=== PATIENT | female | born 1950 | race Caucasian/White ===

== ENCOUNTER → 2016-09-08 | Outpatient (CLI) | payer BC, OTHER ==
[~2016-09-08] MED LIST: CELE40TA PO; COLA100C3 PO; HYDR12.55 PO; LANTINJ4 SC; OMEP20CA3 PO; PERC5TAB6 PO; TYLE325T5 PO; ZOCO20TA PO
--- NOTE | 2016-09-08 09:56 | REP ---
Chest two views HISTORY: Renal carcinoma Comparison: 08/19/2015 The lungs are clear. The heart is normal in size. The pulmonary vasculature is normal in appearance. Degenerative change is present in the thoracic spine. IMPRESSION: No acute disease. Signed by Pardeep Willis MD 09/08/2016 09:47 A
[2016-09-08 13:01] LABS: MEAN CORPUSCULAR HEMOGLOBIN 30.6 pg (27.0-33.0); MEAN CORPUSCULAR HGB CONC 34.7 g/dl (32.0-36.5); MEAN CORPUSCULAR VOLUME 88.1 fl (80.0-96.0); RED CELL DISTRIBUTION WIDTH 13.3 % (11.5-14.5); WHITE BLOOD COUNT 6.3 K/mm3 (4.0-10.0)
[2016-09-08 13:35] LABS: ANION GAP 6 MEQ/L (8-16); BLOOD UREA NITROGEN 10 MG/DL (7-18); CARBON DIOXIDE LEVEL 31 MEQ/L (21-32); CHLORIDE LEVEL 102 MEQ/L (98-107); CREATININE FOR GFR 0.59 MG/DL (0.55-1.02); GLOMERULAR FILTRATION RATE > 60.0 (>45); GLUCOSE, FASTING 104 MG/DL (80-110); POTASSIUM SERUM 3.9 MEQ/L (3.5-5.1); SODIUM LEVEL 139 MEQ/L (136-145)
== END ==
LOC: M SMT 09:16
PROVIDERS: ATTEND Urology
DX: Z85.528 Personal history of other malignant neoplasm of kidney (principal)

== ENCOUNTER 2017-09-25 08:05 | Emergency (ER) | payer MEDICARE, BC, OTHER ==
[2017-09-25 09:44] LABS: BASO % 0.4 % (0.0-1.0); EOS # 0.1 10^3/uL (0.0-0.50); EOS % 0.6 % (0.0-3.0); HEMATOCRIT 40.6 % (36.0-47.0); IMMATURE GRANULOCYTE % 0.4 % (0-3.0); LYMPH # 1.4 10^3/uL (1.5-4.5); LYMPH % 16.1 % (24.0-44.0); MEAN CORPUSCULAR HEMOGLOBIN 28.5 pg (27.0-33.0); MEAN CORPUSCULAR HGB CONC 34.5 g/dl (32.0-36.5); MEAN CORPUSCULAR VOLUME 82.5 fl (80.0-96.0); MONO # 0.5 10^3/uL (0.0-0.8); MONO % 5.6 % (0.0-5.0); NEUTROPHILS # 6.5 10^3/uL (1.8-7.7); NEUTROPHILS % 76.9 % (36.0-66.0); PLATELET COUNT, AUTOMATED 278 10^3/uL (150-450); RED BLOOD COUNT 4.92 10^6/uL (4.00-5.40); RED CELL DISTRIBUTION WIDTH 12.3 % (11.5-14.5); WHITE BLOOD COUNT 8.4 10^3/uL (4.0-10.0)
[2017-09-25] MEDS: KETOROLAC 30 MG/ML VIAL (J1885) IV (09:51)
[2017-09-25] MEDS: GI COCKTAIL 50ML BTL(HYOSCYAMINE/MAALOX/LIDOCAINE VISCOUS)(1:3:1) PO (09:51)
[2017-09-25] MEDS: GASTROGRAFIN SOLUTION 30ML PO ×2 (09:52→10:15)
[2017-09-25 10:04] LABS: APPEARANCE, URINE CLEAR (CLEAR); BACTERIA, URINE AUTO NEGATIVE (NEGATIVE); BILIRUBIN, URINE AUTO NEGATIVE (NEGATIVE); BLOOD, URINE BLOOD NEGATIVE (NEGATIVE); COLOR, URINE YELLOW (YELLOW); GLUCOSE, URINE (UA) AUTO NEGATIVE (NEGATIVE); KETONE, URINE AUTO NEGATIVE (NEGATIVE); LEUKOCYTE ESTERASE, URINE AUTO NEGATIVE (NEGATIVE); NITRITE, URINE AUTO NEGATIVE (NEGATIVE); PROTEIN, URINE AUTO NEGATIVE (NEGATIVE); RBC, URINE AUTO 1 /HPF (0-3); SPECIFIC GRAVITY URINE AUTO 1.011 (1.002-1.035); SQUAMOUS EPITHELIAL CELL UR AU 0 /HPF (0-6); WBC, URINE AUTO 1 /HPF (0-3)
[2017-09-25 10:21] LABS: ALBUMIN 3.7 GM/DL (3.2-5.2); ALKALINE PHOSPHATASE 89 U/L (45-117); ALT/SGPT 38 U/L (12-78); AMYLASE 40 U/L (25-115); ANION GAP 9 MEQ/L (8-16); AST/SGOT 63 U/L (7-37); BILIRUBIN,DIRECT 0.3 MG/DL (0.0-0.2); BILIRUBIN,TOTAL 1.8 MG/DL (0.2-1.0); BLOOD UREA NITROGEN 11 MG/DL (7-18); CARBON DIOXIDE LEVEL 28 MEQ/L (21-32); CHLORIDE LEVEL 101 MEQ/L (98-107); CK-MB VALUE MASS < 1.0 NG/ML (<3.6); CPK CREATINE PHOSPHOKINASE 42 U/L (26-192); CREATININE FOR GFR 0.62 MG/DL (0.55-1.30); GLOMERULAR FILTRATION RATE > 60.0 (>45); GLUCOSE, FASTING 150 MG/DL (70-100); LIPASE 119 U/L (73-393); MB/CK RELATIVE INDEX 2.38 (< OR =4); POTASSIUM SERUM 4.1 MEQ/L (3.5-5.1); SODIUM LEVEL 138 MEQ/L (136-145); TOTAL PROTEIN 7.4 GM/DL (6.4-8.2); TROPONIN I < 0.02 NG/ML (< 0.10)
[2017-09-25] MEDS ORDERED: ISOVUE-370 76% 100ML VIAL (Q9967) As Ordered (11:03)
== END 2017-09-25 12:25 | disposition home or self-care (01) ==
LOC: M ED 08:05
DX: R10.13 Epigastric pain (principal); R00.1 Bradycardia, unspecified; K76.89 Other specified diseases of liver; K44.9 Diaphragmatic hernia without obstruction or gangrene; K21.9 Gastro-esophageal reflux disease without esophagitis; Z98.84 Bariatric surgery status; E10.9 Type 1 diabetes mellitus without complications; Z85.528 Personal history of other malignant neoplasm of kidney; I10 Essential (primary) hypertension; E78.00 Pure hypercholesterolemia, unspecified; Z79.899 Other long term (current) drug therapy
CPT/HCPCS: Q9963

== ENCOUNTER → 2017-11-12 | Outpatient (REF) | payer MEDICARE, BC | LOC: M LAB REF 17:08 | DX: N39.0 Urinary tract infection, site not specified (principal) | CPT/HCPCS: 87186 ==

== ENCOUNTER 2017-11-27 05:52 | Day surgery (SDC) | payer MEDICARE, BC ==
[2017-11-27] MEDS: LR 1,000 ML IV ×2 (06:33→09:07)
[2017-11-27 06:44] LABS: BEDSIDE GLUCOSE 88 MG/DL (80-115)
[2017-11-27] MEDS: ceFAZolin SOD 1 GM in D5W MINI-BAG PLUS 50 ML IV (07:47)
[2017-11-27] MEDS ORDERED: LIDOCAINE 2% INJ 100 MG/5 ML SDV (FOR ANES.) As Ordered (07:56)
[2017-11-27] MEDS ORDERED: fentaNYL 250 MCG/5 ML INJECTION (J3010) As Ordered (07:56)
[2017-11-27] MEDS ORDERED: ROCURONIUM BROMIDE 50 MG/5 ML VIAL As Ordered (07:56)
[2017-11-27] MEDS ORDERED: KETOROLAC 60 MG/2 ML VIAL (J1885) As Ordered (07:56)
[2017-11-27] MEDS ORDERED: PROPOFOL 200 MG/20 ML VIAL As Ordered (07:56)
[2017-11-27] MEDS ORDERED: ONDANSETRON 4MG/2ML VIAL (J2405) As Ordered ×2 (07:56→09:27)
[2017-11-27] MEDS ORDERED: dexameTHASONE 4 MG/ML 1ML VIAL (J1100) As Ordered (07:56)
[2017-11-27] MEDS ORDERED: ePHEDrine SULFATE 25 MG/5 ML(5MG/ML) SYRINGE As Ordered ×3 (07:56→08:17)
[2017-11-27] MEDS ORDERED: MIDAZOLAM INJ 2 MG/2 ML VIAL (J2250) As Ordered (07:56)
[2017-11-27] MEDS ORDERED: NEOSTIGMINE 10 MG/10 ML VIAL (J2710) As Ordered (08:02)
[2017-11-27] MEDS ORDERED: GLYCOPYRROLATE INJ 0.2 MG/ML 2 ML VIAL As Ordered ×2 (08:02)
[2017-11-27] MEDS ORDERED: PHENYLephrine HCL 500 MCG/5 ML (100MCG/ML) SYRINGE (J2370) As Ordered (08:17)
[2017-11-27] MEDS: BUPIVACAINE/EPIN 0.25% 30 ML VIAL As Ordered (08:45)
[2017-11-27] MEDS ORDERED: NALOXONE INJ 0.4 MG/1 ML VIAL (J2310) As Ordered (09:00)
[2017-11-27 09:24] LABS: BEDSIDE GLUCOSE 186 MG/DL (80-115)
[2017-11-27] MEDS ORDERED: PERCOCET 5MG/325MG TAB As Ordered (09:27)
[2017-11-27] MEDS: PERCOCET 5MG/325MG TAB PO ×2 (09:30→10:00)
[2017-11-27] MEDS: ONDANSETRON 4MG/2ML VIAL (J2405) IV (09:30)
[2017-11-27] MEDS ORDERED: fentaNYL 100 MCG/2 ML INJECTION (J3010) IV (09:45)
[2017-11-27] MEDS ORDERED: MORPHINE 4 MG/ML 1ML VIAL/SYRINGE (J2270) IV (09:45)
[2017-11-27] MEDS ORDERED: NORCO, ANEXSIA 5/325MG TABLET (HYDROcodone/ACETAMINOPHEN) PO (09:45)
[2017-11-27] MEDS ORDERED: HYDROMORPHONE HCL 0.5 MG/ 0.5 ML SYRINGE (J1170 PER 1) IV (09:45)
[2017-11-27] MEDS ORDERED: ONDANSETRON 4MG/2ML VIAL (J2405) IV (09:45)
[2017-11-27] MEDS ORDERED: LR 1,000 ML IV (09:45)
[2017-11-27] MEDS ORDERED: METOCLOPRAMIDE INJ 10MG/2ML VIAL (J2765) IV (09:45)
== END 2017-11-27 11:05 | disposition home or self-care (01) ==
LOC: M SDC 05:52
DX: K80.18 Calculus of gallbladder with other cholecystitis without obstruction (principal); E11.9 Type 2 diabetes mellitus without complications; I10 Essential (primary) hypertension; K44.9 Diaphragmatic hernia without obstruction or gangrene; F41.9 Anxiety disorder, unspecified; F32.9 Major depressive disorder, single episode, unspecified; Z98.84 Bariatric surgery status; Z85.528 Personal history of other malignant neoplasm of kidney; Z79.899 Other long term (current) drug therapy
CPT/HCPCS: 47562

== ENCOUNTER → 2018-10-16 | Outpatient (REF) | payer MEDICARE, OTHER ==
[~2018-10-16] MED LIST changes: +ATOR1TAB21; +CARA1TAB6 PO; -COLA100C3 PO; +COLA100C5 PO; +LISI10TA2 PO; +LISINOP/HCTZ; -OMEP20CA3 PO; +OMEP20CA4 PO; +PANT40TA3; +PANT40TA3 PO; +PERC5TAB12 PO; -PERC5TAB6 PO; +SUCR1TAB56; +TOUJ1.2I SC
== END ==
LOC: M LAB REF 16:19
PROVIDERS: ATTEND Physician Assistant
DX: R30.0 Dysuria (principal)

== ENCOUNTER → 2018-10-16 | Outpatient (CLI) | payer MEDICARE, OTHER ==
[2018-10-16 17:20] LABS: BLOOD UREA NITROGEN 7 MG/DL (7-18); CARBON DIOXIDE LEVEL 29 MEQ/L (21-32); CHLORIDE LEVEL 102 MEQ/L (98-107); CREATININE FOR GFR 0.66 MG/DL (0.55-1.30); GLOMERULAR FILTRATION RATE > 60.0 (>45); GLUCOSE, FASTING 212 MG/DL (70-100); POTASSIUM SERUM 4.6 MEQ/L (3.5-5.1); SODIUM LEVEL 137 MEQ/L (136-145)
== END ==
LOC: M WUC 13:29
PROVIDERS: ATTEND Urology
DX: Z85.528 Personal history of other malignant neoplasm of kidney (principal)

== ENCOUNTER → 2018-10-21 | Outpatient (CLI) | payer MEDICARE, OTHER ==
[~2018-10-21] MED LIST changes: +ISOVUE-370 76% 100ML VIAL (Q9967) As Ordered ONE
--- NOTE | 2018-10-21 09:31 | REP ---
PA and lateral chest: Comparison is 09/25/2017. The lung merino are clear. The cardiac size is normal. The maryjo, mediastinum, and skeletal structures are unremarkable. Impression: Negative PA and lateral chest. There is no interval change. Electronically Signed by Popeye Loaiza MD 10/21/2018 09:21 A
--- NOTE | 2018-10-21 09:53 | REP ---
CT of the abdomen, pelvis not included, with IV contrast, without bowel contrast: Biphasic imaging is performed initially during the arterial phase of imaging. Scanning is repeated during the delayed equilibrium phase of enhancement. Comparison is 09/25/2017 in this patient with history of malignant renal neoplasm. The renal cortices enhance normally bilaterally. There is a small defect in the renal cortex at the right renal lower pole measuring up to 1 cm in diameter. This is unchanged. There is no hydronephrosis. No renal calculi are identified. The kidneys are otherwise unremarkable and unchanged. The adrenals are unremarkable and unchanged. The visualized lung merino are unremarkable. The hepatic parenchyma is homogeneous and unchanged. There are surgical clips in the gallbladder fossa, unchanged. The pancreas is unremarkable. There is evidence for bariatric surgery. This is unchanged. The spleen is normal size. There are no splenic masses. The abdominal aorta is unremarkable. There is no periaortic adenopathy or mass. The visualized bowel and mesentery are unremarkable. Impression: There is a small cortical defect at the lower pole of the left kidney, unchanged. There is no evidence of tumor recurrence. Bariatric surgery. Otherwise, negative CT study of the abdomen, pelvis not included. Electronically Signed by Popeye Loaiza MD 10/21/2018 09:45 A
== END ==
LOC: M RAD 08:10
PROVIDERS: ATTEND Urology
DX: Z85.528 Personal history of other malignant neoplasm of kidney (principal)
CPT/HCPCS: 71046; 74160; Q9967

== ENCOUNTER → 2018-11-01 | Outpatient (REF) | payer MEDICARE, OTHER ==
[~2018-11-01] MED LIST changes: -ISOVUE-370 76% 100ML VIAL (Q9967) As Ordered ONE; +LISI10TA15 PO; -LISI10TA2 PO
[2018-11-01 18:12] LABS: APPEARANCE, URINE CLEAR (CLEAR); BACTERIA, URINE AUTO NEGATIVE (NEGATIVE); BILIRUBIN, URINE AUTO NEGATIVE (NEGATIVE); BLOOD, URINE BLOOD NEGATIVE (NEGATIVE); COLOR, URINE YELLOW (YELLOW); GLUCOSE, URINE (UA) AUTO NEGATIVE (NEGATIVE); KETONE, URINE AUTO NEGATIVE (NEGATIVE); LEUKOCYTE ESTERASE, URINE AUTO 3+ (NEGATIVE); MUCUS, URINE SMALL (NEGATIVE); NITRITE, URINE AUTO NEGATIVE (NEGATIVE); PROTEIN, URINE AUTO NEGATIVE (NEGATIVE); RBC, URINE AUTO 2 /HPF (0-3); SPECIFIC GRAVITY URINE AUTO 1.015 (1.002-1.035); SQUAMOUS EPITHELIAL CELL UR AU 1 /HPF (0-6); WBC, URINE AUTO 40 /HPF (0-3)
== END ==
LOC: M SMT 17:05
PROVIDERS: ATTEND Urology
DX: N39.0 Urinary tract infection, site not specified (principal)
CPT/HCPCS: 81001; 87086; G0463

== ENCOUNTER → 2019-03-19 | Outpatient (REF) | payer MEDICARE, OTHER ==
[~2019-03-19] MED LIST changes: +OMEP-172 PO; -OMEP20CA4 PO
== END ==
LOC: M LAB REF 11:54
PROVIDERS: ATTEND Family Medicine
DX: R76.8 Other specified abnormal immunological findings in serum (principal); R74.8 Abnormal levels of other serum enzymes

== ENCOUNTER → 2019-09-04 | Outpatient (REF) | payer MEDICARE, OTHER ==
[~2019-09-04] MED LIST changes: -OMEP-172 PO; +OMEP1CAP73 PO
== END ==
LOC: M LAB REF 11:26
PROVIDERS: ATTEND Family Medicine
DX: N39.0 Urinary tract infection, site not specified (principal)

== ENCOUNTER → 2019-10-18 | Outpatient (CLI) | payer MEDICARE, OTHER ==
[~2019-10-18] MED LIST changes: +OZEM2INJ SC; +PANT40TA29; +PANT40TA29 PO; -PANT40TA3; -PANT40TA3 PO
== END ==
LOC: M LABSMTC 10:15
PROVIDERS: ATTEND Anesthesiology
DX: Z01.818 Encounter for other preprocedural examination (principal); Z11.59 Encounter for screening for other viral diseases
CPT/HCPCS: C9803; U0003

== ENCOUNTER → 2019-10-23 | Day surgery (SDC) | payer MEDICARE, OTHER ==
[~2019-10-23] VITALS: Ht 160 cm; Wt 60.1 kg
[~2019-10-23] MED LIST changes: +LIDOCAINE 2% 100MG/5ML SDV (FOR ANES.) As Ordered ONE; +NS 1,000 ML IV ONE; -PANT40TA29; -PANT40TA29 PO; +PANT40TA3; +PANT40TA3 PO; +SIMETHICONE 40MG/0.6ML DROPS 30ML As Ordered ONE; +fentaNYL 100 MCG/2 ML INJECTION (J3010) As Ordered ONE; +propofoL 200 MG/20 ML VIAL As Ordered ONE
--- NOTE | 2019-10-23 08:56 | ROOR ---
Patient Name: Vy Herrera Procedure Date: 10/23/2019 8:44 AM Date of : 1950 Age: 69 Room: [facility] Gender: Female Note Status: Finalized Procedure: Upper GI endoscopy Indications: Suspected esophageal reflux Providers: Edward Sousa Jr, MD Referring MD: Iftikhar Johnson MD Requesting Provider: Medicines: Propofol per Anesthesia Complications: No immediate complications. Procedure: Pre-Anesthesia Assessment: - Prior to the procedure, a History and Physical was performed, and patient medications and allergies were reviewed. The patient is competent. The risks and benefits of the procedure and the sedation options and risks were discussed with the patient. All questions were answered and informed consent was obtained. Patient identification and proposed procedure were verified by the physician and the nurse in the pre-procedure area and in the procedure room. Mental Status Examination: alert and oriented. Airway Examination: normal oropharyngeal airway and neck mobility. Respiratory Examination: clear to auscultation. CV Examination: normal. ASA Grade Assessment: II - A patient with mild systemic disease. After reviewing the risks and benefits, the patient was deemed in satisfactory condition to undergo the procedure. The anesthesia plan was to use moderate sedation / analgesia (conscious sedation). Immediately prior to administration of medications, the patient was re-assessed for adequacy to receive sedatives. The heart rate, respiratory rate, oxygen saturations, blood pressure, adequacy of pulmonary ventilation, and response to care were monitored throughout the procedure. The physical status of the patient was re-assessed after the procedure. The Endoscope was introduced through the mouth, and advanced to the jejunum. The upper GI endoscopy was accomplished without difficulty. The patient tolerated the procedure well. Findings: The upper third of the esophagus, middle third of the esophagus and lower third of the esophagus were normal. A small hiatal hernia was present. Evidence of a gastric bypass was found. A gastric pouch with a normal size was found containing suture material. The staple line appeared intact. The gastrojejunal anastomosis was characterized by erythema and friable mucosa. This was traversed. The examined jejunum was normal. Impression: - Normal upper third of esophagus, middle third of esophagus and lower third of esophagus. - Small hiatal hernia. - Gastric bypass with a normal-sized pouch and intact staple line. Gastrojejunal anastomosis characterized by erythema and friable mucosa. - Normal examined jejunum. - No specimens collected. Recommendation: - Discharge patient to home (ambulatory). - Return to my office PRN. Edward Sousa MD Edward Sousa Jr, MD 10/23/2019 8:56:14 AM Electronically signed by Edward Sousa Jr, MD Number of Addenda: 0 Note Initiated On: 10/23/2019 8:44 AM Estimated Blood Loss: Estimated blood loss: none.
--- NOTE | 2019-10-23 09:11 | ROOR ---
Patient Name: Vy Herrera Procedure Date: 10/23/2019 8:45 AM Date of : 1950 Age: 69 Room: [facility] Gender: Female Note Status: Finalized Procedure: Colonoscopy Indications: Screening for colorectal malignant neoplasm Providers: Edward Sousa Jr, MD Referring MD: Iftikhar Johnson MD Requesting Provider: Medicines: Propofol per Anesthesia Complications: No immediate complications. Procedure: Pre-Anesthesia Assessment: - Prior to the procedure, a History and Physical was performed, and patient medications and allergies were reviewed. The patient is competent. The risks and benefits of the procedure and the sedation options and risks were discussed with the patient. All questions were answered and informed consent was obtained. Patient identification and proposed procedure were verified by the physician and the nurse in the pre-procedure area and in the procedure room. Mental Status Examination: alert and oriented. Airway Examination: normal oropharyngeal airway and neck mobility. Respiratory Examination: clear to auscultation. CV Examination: normal. ASA Grade Assessment: II - A patient with mild systemic disease. After reviewing the risks and benefits, the patient was deemed in satisfactory condition to undergo the procedure. The anesthesia plan was to use moderate sedation / analgesia (conscious sedation). Immediately prior to administration of medications, the patient was re-assessed for adequacy to receive sedatives. The heart rate, respiratory rate, oxygen saturations, blood pressure, adequacy of pulmonary ventilation, and response to care were monitored throughout the procedure. The physical status of the patient was re-assessed after the procedure. The Colonoscope was introduced through the anus and advanced to the cecum, identified by appendiceal orifice and ileocecal valve. The colonoscopy was performed without difficulty. The patient tolerated the procedure well. The quality of the bowel preparation was adequate. Findings: The rectum, recto-sigmoid colon, descending colon, transverse colon, cecum, appendiceal orifice and ileocecal valve appeared normal. A few small and large-mouthed diverticula were found in the sigmoid colon. A small polyp was found in the ascending colon. The polyp was removed with a cold snare. Resection and retrieval were complete. Impression: - The rectum, recto-sigmoid colon, descending colon, transverse colon, cecum, appendiceal orifice and ileocecal valve are normal. - Diverticulosis in the sigmoid colon. - One small polyp in the ascending colon, removed with a cold snare. Resected and retrieved. Recommendation: - Discharge patient to home (ambulatory). - Repeat colonoscopy in 5-10 years for surveillance based on pathology results. Edward Sousa MD Edward Sousa Jr, MD 10/23/2019 9:10:49 AM Electronically signed by Edward Sousa Jr, MD Number of Addenda: 0 Note Initiated On: 10/23/2019 8:45 AM Estimated Blood Loss: Estimated blood loss: none.
[2019-10-23 09:37] VITALS: BP 113/59
== END | disposition home or self-care (01) ==
LOC: M OPP 07:28
PROVIDERS: ATTEND Surgery
DX: K21.9 Gastro-esophageal reflux disease without esophagitis (principal); D12.6 Benign neoplasm of colon, unspecified; Z98.84 Bariatric surgery status; K44.9 Diaphragmatic hernia without obstruction or gangrene; E10.9 Type 1 diabetes mellitus without complications; Z79.4 Long term (current) use of insulin; Z79.899 Other long term (current) drug therapy
CPT/HCPCS: 43239; 45380; 88305; J3010

== ENCOUNTER → 2020-11-22 | Outpatient (CLI) | payer MEDICARE, OTHER ==
[~2020-11-22] MED LIST changes: -LIDOCAINE 2% 100MG/5ML SDV (FOR ANES.) As Ordered ONE; -NS 1,000 ML IV ONE; +PANT40TA29; +PANT40TA29 PO; -PANT40TA3; -PANT40TA3 PO; -SIMETHICONE 40MG/0.6ML DROPS 30ML As Ordered ONE; -fentaNYL 100 MCG/2 ML INJECTION (J3010) As Ordered ONE; -propofoL 200 MG/20 ML VIAL As Ordered ONE
--- NOTE | 2020-11-22 16:18 | REP ---
INDICATION: CONTUSION OF RIGHT FRONT WALL OF THORAX, INITIAL ENCOUNTER COMPARISON: None. TECHNIQUE: Frontal view of the chest with multiple views of the right hemithorax. FINDINGS: Right posterior and anterior minimally displaced 5th rib fractures. Right anterior 6th rib fracture. Mediastinum and cardiac silhouette normal. Lung merino are clear and without acute consolidation/contusion, effusion, or pneumothorax. Skeletal structures demonstrate age-related osteopenia and degenerative changes. IMPRESSION: Right rib fractures as noted above. <Electronically signed by Regino Barnes > 11/22/20 [id number]
== END ==
LOC: M PLAIMG 15:22
PROVIDERS: ATTEND Physician Assistant
DX: S20.211A Contusion of right front wall of thorax, initial encounter (principal); W18.30XA Fall on same level, unspecified, initial encounter; Y92.009 Unspecified place in unspecified non-institutional (private) residence as the place of occurrence of the external cause

== ENCOUNTER → 2022-07-29 | Outpatient (REF) | payer MEDICARE, OTHER ==
[~2022-07-29] MED LIST changes: -LISI10TA15 PO; +LISI10TA24 PO; +SIMV-253 PO; -ZOCO20TA PO
== END ==
LOC: M LAB REF 17:39
PROVIDERS: ATTEND Physician Assistant
DX: R30.0 Dysuria (principal); R50.9 Fever, unspecified

== ENCOUNTER 2022-08-25 15:10 | Emergency (ER) | payer MEDICARE, OTHER ==
[~2022-08-25] VITALS: Ht 160 cm; Wt 64.1 kg
[2022-08-25 15:13] VITALS: BP 166/82
== END 2022-08-25 18:20 | disposition left against medical advice (07) ==
LOC: M ED 15:10
DX: S09.90XA Unspecified injury of head, initial encounter (principal); W01.0XXA Fall on same level from slipping, tripping and stumbling without subsequent striking against object, initial encounter; Y92.009 Unspecified place in unspecified non-institutional (private) residence as the place of occurrence of the external cause; Y93.01 Activity, walking, marching and hiking; Y99.8 Other external cause status; E11.9 Type 2 diabetes mellitus without complications; Z98.84 Bariatric surgery status; Z79.899 Other long term (current) drug therapy

== ENCOUNTER → 2022-10-24 | Outpatient (REF) | payer MEDICARE, OTHER | LOC: M LAB REF 12:11 | PROVIDERS: ATTEND Family Medicine | DX: R30.0 Dysuria (principal) ==

== ENCOUNTER → 2022-12-12 | Outpatient (REF) | payer MEDICARE, OTHER ==
[2022-12-12 18:12] LABS: APPEARANCE, URINE CLEAR (CLEAR); BACTERIA, URINE AUTO 1+ (NEGATIVE); BILIRUBIN, URINE AUTO NEGATIVE (NEGATIVE); BLOOD, URINE BLOOD NEGATIVE (NEGATIVE); COLOR, URINE STRAW (YELLOW); GLUCOSE, URINE (UA) AUTO NEGATIVE (NEGATIVE); KETONE, URINE AUTO NEGATIVE (NEGATIVE); LEUKOCYTE ESTERASE, URINE AUTO TRACE (NEGATIVE); NITRITE, URINE AUTO NEGATIVE (NEGATIVE); PROTEIN, URINE AUTO NEGATIVE (NEGATIVE); RBC, URINE AUTO 0 /HPF (0-3); SPECIFIC GRAVITY URINE AUTO 1.003 (1.002-1.035); SQUAMOUS EPITHELIAL CELL UR AU 0 /HPF (0-6); UROBILINOGEN, URINE AUTO 0.2 mg/dL (0.0-2.0); WBC, URINE AUTO 2 /HPF (0-3)
== END ==
LOC: M SMT 16:56
PROVIDERS: ATTEND Physician Assistant
DX: N39.0 Urinary tract infection, site not specified (principal)

== ENCOUNTER → 2022-12-22 | Outpatient (CLI) | payer MEDICARE, OTHER ==
[2022-12-22 14:28] LABS: BLOOD UREA NITROGEN 8 MG/DL (9-23); CALCIUM LEVEL 9.4 MG/DL (8.3-10.6); CARBON DIOXIDE LEVEL 30 MMOL/L (20-31); CHLORIDE LEVEL 101 MMOL/L (98-107); CREATININE FOR GFR 0.48 MG/DL (0.55-1.30); GLOMERULAR FILTRATION RATE > 60.0 (>39); GLUCOSE, FASTING 150 MG/DL (74-106); SODIUM LEVEL 139 MMOL/L (136-145)
== END ==
LOC: M PLALAB 09:28
PROVIDERS: ATTEND Physician Assistant
DX: Z85.528 Personal history of other malignant neoplasm of kidney (principal)

== ENCOUNTER 2023-01-11 10:01 | Emergency (ER) | payer MEDICARE, OTHER ==
[~2023-01-11] VITALS: Ht 160 cm; Wt 69.8 kg
[2023-01-11] MEDS ORDERED: ASPI81CH33 PO (10:17)
[2023-01-11] MEDS ORDERED: ONDANSETRON 4MG 2ML VIAL IV ONE (12:35)
[2023-01-11] MEDS ORDERED: MORPHINE 4 MG/ML 1ML VIAL IV ONE (12:35)
[2023-01-11 12:54] LABS: BASO % 0.1 % (0.0-1.0); EOS % 0.6 % (0.0-3.0); HEMATOCRIT 40.6 % (36.0-47.0); HEMOGLOBIN 13.8 g/dl (12.0-15.5); LYMPH # 1.1 10^3/uL (1.5-5.0); LYMPH % 15.2 % (24.0-44.0); MEAN CORPUSCULAR HEMOGLOBIN 29.9 pg (27.0-33.0); MEAN CORPUSCULAR VOLUME 88.1 fl (80.0-96.0); MONO # 0.4 10^3/uL (0.0-0.8); NEUTROPHILS # 5.6 10^3/uL (1.5-8.5); NEUTROPHILS % 77.8 % (36.0-66.0); PLATELET COUNT, AUTOMATED 249 10^3/uL (150-450); RED BLOOD COUNT 4.61 10^6/uL (4.00-5.40); WHITE BLOOD COUNT 7.2 10^3/uL (4.0-10.0)
[2023-01-11 13:14] LABS: INR 0.99; PROTHROMBIN TIME 12.8 SECONDS (12.5-14.5)
[2023-01-11 13:15] LABS: PARTIAL THROMBOPLASTIN TIME 25.9 SECONDS (24.8-34.2)
[2023-01-11 13:21] LABS: BLOOD UREA NITROGEN 10 MG/DL (9-23); CALCIUM LEVEL 9.3 MG/DL (8.3-10.6); CARBON DIOXIDE LEVEL 25 MMOL/L (20-31); CHLORIDE LEVEL 102 MMOL/L (98-107); CREATININE FOR GFR 0.46 MG/DL (0.55-1.30); GLOMERULAR FILTRATION RATE > 60.0 (>39); GLUCOSE, FASTING 145 MG/DL (74-106); POTASSIUM SERUM 3.9 MMOL/L (3.5-5.1); SODIUM LEVEL 136 MMOL/L (136-145)
[2023-01-11] MEDS ORDERED: PERCOCET 5MG/325MG TAB PO ONE (14:10)
[2023-01-11] MEDS ORDERED: MIRA3350 PO (14:32)
[2023-01-11] MEDS ORDERED: PERC5TAB12 PO (14:32)
[2023-01-11 14:48] VITALS: BP 96/58; TEMP 98; O2SAT 98
== END 2023-01-11 14:55 | disposition home or self-care (01) ==
LOC: M ED 10:01
DX: S42.211A Unspecified displaced fracture of surgical neck of right humerus, initial encounter for closed fracture (principal); W01.0XXA Fall on same level from slipping, tripping and stumbling without subsequent striking against object, initial encounter; Y92.009 Unspecified place in unspecified non-institutional (private) residence as the place of occurrence of the external cause; Z79.82 Long term (current) use of aspirin; Z79.899 Other long term (current) drug therapy
CPT/HCPCS: 73030; 73060; 80048; 85025; 85610; 85730; 87635; 93005; 96374; 96375; 99284; J2405

== ENCOUNTER → 2023-01-12 | Outpatient (CLI) | payer MEDICARE, OTHER ==
[~2023-01-12] MED LIST changes: +ASPI81CH33 PO; +MIRA3350 PO
== END ==
LOC: M SOG 10:40
PROVIDERS: ATTEND Orthopaedic Surgery
DX: M25.511 Pain in right shoulder (principal)

== ENCOUNTER → 2023-10-03 | Outpatient (CLI) | payer MEDICARE, OTHER | LOC: M WUC 09:38 | PROVIDERS: ATTEND Family Medicine | DX: R07.82 Intercostal pain (principal) ==

== ENCOUNTER → 2023-12-04 | Outpatient (CLI) | payer MEDICARE, OTHER ==
[2023-12-04 14:50] LABS: BLOOD UREA NITROGEN 8 MG/DL (9-23); CALCIUM LEVEL 9.5 MG/DL (8.3-10.6); CARBON DIOXIDE LEVEL 32 MMOL/L (20-31); CHLORIDE LEVEL 101 MMOL/L (98-107); CREATININE FOR GFR 0.48 MG/DL (0.55-1.30); GLOMERULAR FILTRATION RATE > 60.0 (>39); GLUCOSE, FASTING 95 MG/DL (74-106); SODIUM LEVEL 138 MMOL/L (136-145)
== END ==
LOC: M PLALAB 10:45
PROVIDERS: ATTEND Physician Assistant
DX: Z85.528 Personal history of other malignant neoplasm of kidney (principal)

== ENCOUNTER → 2023-12-05 | Outpatient (CLI) | payer MEDICARE, OTHER ==
[~2023-12-05] MED LIST changes: +ISOVUE-370 76% 100ML VIAL ONE
== END ==
LOC: M PLAIMG 13:48
PROVIDERS: ATTEND Physician Assistant
DX: Z85.528 Personal history of other malignant neoplasm of kidney (principal)
CPT/HCPCS: 74170; Q9967

== ENCOUNTER → 2024-07-31 | Outpatient (CLI) | payer MEDICARE, OTHER ==
[~2024-07-31] MED LIST changes: +ISOVUE-370 76% 100ML VIAL As Ordered ONE; -ISOVUE-370 76% 100ML VIAL ONE
== END ==
LOC: M RAD 08:33
PROVIDERS: ATTEND Family Medicine
DX: Z85.53 Personal history of malignant neoplasm of renal pelvis (principal)
CPT/HCPCS: 74177; Q9967

== ENCOUNTER → 2024-08-13 | Outpatient (CLI) | payer MEDICARE, OTHER ==
[~2024-08-13] MED LIST changes: -ISOVUE-370 76% 100ML VIAL As Ordered ONE; +PROHANCE 279.3MG/ML 15ML VIAL As Ordered ONE
== END ==
LOC: M RAD 16:19
PROVIDERS: ATTEND Family Medicine
DX: D48.7 Neoplasm of uncertain behavior of other specified sites (principal)
CPT/HCPCS: 74183; A9576

== ENCOUNTER → 2024-11-25 | Outpatient (CLI) | payer MEDICARE, OTHER ==
[~2024-11-25] MED LIST changes: -PROHANCE 279.3MG/ML 15ML VIAL As Ordered ONE
[2024-11-25 09:39] LABS: CALCIUM LEVEL 9.3 MG/DL (8.3-10.6); CARBON DIOXIDE LEVEL 30 MMOL/L (20-31); CHLORIDE LEVEL 101 MMOL/L (98-107); CREATININE FOR GFR 0.50 MG/DL (0.55-1.30); GLOMERULAR FILTRATION RATE > 90.0 (>39); POTASSIUM SERUM 4.2 MMOL/L (3.5-5.1); SODIUM LEVEL 141 MMOL/L (136-145)
== END ==
LOC: M LAB 08:21
PROVIDERS: ATTEND Physician Assistant
DX: Z85.528 Personal history of other malignant neoplasm of kidney (principal)

== ENCOUNTER → 2024-12-02 | Outpatient (CLI) | payer MEDICARE, OTHER ==
[~2024-12-02] MED LIST changes: +ISOVUE-370 76% 100 ML VIAL As Ordered ONE
== END ==
LOC: M RAD 09:39
PROVIDERS: ATTEND Physician Assistant
DX: Z85.528 Personal history of other malignant neoplasm of kidney (principal); R93.2 Abnormal findings on diagnostic imaging of liver and biliary tract
CPT/HCPCS: 74170; Q9967

== ENCOUNTER 2025-02-19 08:53 | Day surgery (SDC) | payer MEDICARE, OTHER ==
[~2025-02-19] VITALS: Ht 160 cm; Wt 53.4 kg
[~2025-02-19 08:53] MED LIST changes: -ISOVUE-370 76% 100 ML VIAL As Ordered ONE; +LIDOCAINE 2% 100 MG/5 ML SDV (FOR ANES.) As Ordered ONE; +SEMA1PEN2 SQ; +SUCR1TAB56 PO
[2025-02-19] MEDS ORDERED: ONDANSETRON 4MG/2ML VIAL As Ordered ONE (10:22)
[2025-02-19 11:03] VITALS: TEMP 97.1
[2025-02-19 11:24] VITALS: BP 129/61; O2SAT 98
== END 2025-02-19 11:25 | disposition home or self-care (01) ==
LOC: M OPP 08:53
PROVIDERS: ATTEND Surgery
DX: K57.30 Diverticulosis of large intestine without perforation or abscess without bleeding (principal); Z86.0100 Personal history of colon polyps, unspecified; K44.9 Diaphragmatic hernia without obstruction or gangrene; K29.71 Gastritis, unspecified, with bleeding; Z98.84 Bariatric surgery status; K30 Functional dyspepsia; Z79.82 Long term (current) use of aspirin; Z79.85 Long-term (current) use of injectable non-insulin antidiabetic drugs; Z79.899 Other long term (current) drug therapy
CPT/HCPCS: 43239; 45378; 88305; J2405; J3010